=== PATIENT | male | born 1960 | race Caucasian/White ===

== ENCOUNTER 2022-07-26 08:00 | Outpatient (CLI) | payer BC, MEDICAID ==
[~2022-07-26] VITALS: Ht 180.3 cm; Wt 90.7 kg
[2022-07-26] MEDS ORDERED: GABA600T13 (14:05)
[2022-07-26] MEDS ORDERED: ESCI20TA39 (14:05)
[2022-07-26] MEDS ORDERED: ALBU90AE (14:05)
[2022-07-26] MEDS ORDERED: BACL20TA2 PO (14:05)
[2022-07-26] MEDS ORDERED: CARV25TA56 PO (14:05)
[2022-07-26] MEDS ORDERED: FURO20TA4 (14:05)
[2022-07-26] MEDS ORDERED: ATOR20TA66 PO (14:05)
[2022-07-26] MEDS ORDERED: LISI20TA28 PO (14:05)
[2022-07-26] MEDS ORDERED: ALPR1TAB2 PO (14:05)
[2022-07-26] MEDS ORDERED: BUPR300T86 PO (14:05)
[2022-07-26] MEDS ORDERED: OXYC1TAB17 PO (14:05)
[2022-07-26 14:42] LABS: BASOPHILS # (AUTO) 0.1 X10'3 (0-0.2); BASOPHILS % (AUTO) 0.7 % (0-1); EOSINOPHILS # (AUTO) 0.3 X10'3 (0-0.9); EOSINOPHILS % (AUTO) 2.6 % (0-6); LYMPHOCYTES # (AUTO) 1.5 X10'3 (1.1-4.8); LYMPHOCYTES % (AUTO) 12.5 % (21-51); MEAN CORPUSCULAR HEMOGLOBIN 30.7 PG (27.0-31.0); MEAN CORPUSCULAR VOLUME 90.4 FL (78-98); MEAN PLATELET VOLUME 8.2 FL (7.4-10.4); MONOCYTES % (AUTO) 8.4 % (2-12); NEUTROPHILS # (AUTO) 8.9 X10'3 (1.8-7.7); NEUTROPHILS % (AUTO) 75.8 % (42-75); PRE OP HEMATOCRIT 40.9 % (42.0-52.0); PRE OP HEMOGLOBIN 13.9 g/dL (14.0-17.9); PRE OP PLATELET COUNT 264 X10'3 (140-440); RED BLOOD COUNT 4.53 X10'6 (4.70-6.10); RED CELL DISTRIBUTION WIDTH 13.9 % (11.5-14.5)
[2022-07-26 15:10] LABS: ALBUMIN 3.4 G/DL (3.4-5.0); ALBUMIN/GLOBULIN RATIO 0.9 (1.1-1.5); ALKALINE PHOSPHATASE 96 IU/L (46-116); BLOOD UREA NITROGEN 22 MG/DL (7-18); BUN/CREATININE RATIO 17.9 (5.4-32.0); CALCIUM 8.9 MG/DL (8.5-10.1); CHLORIDE 106 MMOL/L (99-107); CREATININE 1.23 MG/DL (0.60-1.10); PRE OP ALT 27 U/L (30-65); PRE OP ANION GAP 8 (8-16); PRE OP AST 31 U/L (10-37); PRE OP BILIRUB, TOTAL 0.8 MG/DL (0.0-1.0); PRE OP GLUCOSE 110 MG/DL (70-104); PRE OP SODIUM 141 MMOL/L (135-145); TOTAL CARBON DIOXIDE 26.6 MMOL/L (24-32); TOTAL PROTEIN 7.3 G/DL (6.4-8.2); eGFR 60 ML/MIN
[2022-07-27] MEDS ORDERED: ringers solution, lacted 1,000 ML IV SCH (05:00)
[2022-07-27] MEDS ORDERED: ceFAZolin inj. 2,000 MG in dextrose 5%-water 100 ML IV ONE (05:30)
[2022-07-27] MEDS ORDERED: famotidine 20mg tablet PO ONE (05:30)
== END 2022-07-26 23:00 | disposition home or self-care (01) ==
LOC: LAB 08:00 → EDSTATUS 07-27 07:30
PROVIDERS: ATTEND Orthopaedic Surgery
DX: Z01.818 Encounter for other preprocedural examination (principal); M19.011 Primary osteoarthritis, right shoulder; M75.101 Unspecified rotator cuff tear or rupture of right shoulder, not specified as traumatic; M19.012 Primary osteoarthritis, left shoulder; Z88.2 Allergy status to sulfonamides
CPT/HCPCS: 36415; 80053; 85025; 93005; J7120

== ENCOUNTER 2022-10-05 08:32 | Inpatient (IN) | payer BC, MEDICAID ==
[2022-09-29 11:48] LABS: BASOPHILS # (AUTO) 0.1 X10'3 (0-0.2); BASOPHILS % (AUTO) 0.7 % (0-1); EOSINOPHILS # (AUTO) 1.3 X10'3 (0-0.9); EOSINOPHILS % (AUTO) 9.4 % (0-6); LYMPHOCYTES # (AUTO) 2.1 X10'3 (1.1-4.8); LYMPHOCYTES % (AUTO) 15.7 % (21-51); MEAN CORPUSCULAR HEMOGLOBIN 29.3 PG (27.0-31.0); MEAN CORPUSCULAR HGB CONC 32.8 g/dL (33.0-36.5); MEAN CORPUSCULAR VOLUME 89.4 FL (78-98); MEAN PLATELET VOLUME 7.5 FL (7.4-10.4); MONOCYTES % (AUTO) 7.4 % (2-12); NEUTROPHILS # (AUTO) 8.9 X10'3 (1.8-7.7); NEUTROPHILS % (AUTO) 66.8 % (42-75); PRE OP HEMOGLOBIN 14.8 g/dL (14.0-17.9); PRE OP PLATELET COUNT 278 X10'3 (140-440); RED BLOOD COUNT 5.04 X10'6 (4.70-6.10); RED CELL DISTRIBUTION WIDTH 15.2 % (11.5-14.5)
[2022-09-29 12:00] LABS: ALBUMIN 3.5 G/DL (3.4-5.0); ALBUMIN/GLOBULIN RATIO 0.9 (1.1-1.5); ALKALINE PHOSPHATASE 112 IU/L (46-116); BLOOD UREA NITROGEN 16 MG/DL (7-18); CALCIUM 8.7 MG/DL (8.5-10.1); CHLORIDE 107 MMOL/L (99-107); PRE OP ALT 19 U/L (30-65); PRE OP ANION GAP 6 (8-16); PRE OP AST 16 U/L (10-37); PRE OP BILIRUB, TOTAL 0.3 MG/DL (0.0-1.0); PRE OP GLUCOSE 115 MG/DL (70-104); PRE OP POTASSIUM 4.4 MMOL/L (3.4-5.1); PRE OP SODIUM 139 MMOL/L (135-145); TOTAL CARBON DIOXIDE 26.3 MMOL/L (24-32); TOTAL PROTEIN 7.2 G/DL (6.4-8.2); eGFR > 90 ML/MIN
[~2022-10-05] VITALS: Ht 180.3 cm; Wt 99.4 kg
[2022-10-05] VITALS (28 sets, daily range): BP systolic 103–165; BP diastolic 65–101
[~2022-10-05 08:32] MED LIST: ALBU90AE; ALPR1TAB2 PO; ATOR20TA66 PO; BACL20TA2 PO; CARV25TA56 PO; DOCUMENT DATE & TIME OF BETA-BLOCKER PO ONE; ESCI20TA39; FURO20TA4; GABA600T13; LISI20TA28 PO; OXYC1TAB17 PO; TRAZ150T78 PO; VENL150C58 PO; albuterol 2.5 MG/3 ML nebule NEB ONE; ceFAZolin inj. 2,000 MG in dextrose 5%-water 100 ML IV ONE; famotidine 20mg tablet PO ONE; ringers solution, lacted 1,000 ML IV SCH
[2022-10-05] MEDS ORDERED: labetalol 20mg/4ml (5mg/ml) syringe IV PRN (10:55)
[2022-10-05] MEDS ORDERED: morphine 4 MG/ML inj SYRINge IV PRN (10:55)
[2022-10-05] MEDS ORDERED: fentaNYL/PF 50MCG/1 ML 2ML syringe IV PRN ×2 (10:55)
[2022-10-05] MEDS ORDERED: ondansetron/PF 4mg/2ml inj IV PRN ×2 (10:55→14:40)
[2022-10-05] MEDS ORDERED: ROPIVAcaine 0.2% (10 MG/5 ML) BOLUS INJECTION INTERSCALE PRN (10:55)
[2022-10-05] MEDS ORDERED: hydrALAZINE 20mg/ml inj. IV PRN (10:55)
[2022-10-05] MEDS ORDERED: ringers solution, lacted 1,000 ML IV SCH (10:55)
[2022-10-05] MEDS ORDERED: ROPIVAcaine 0.2%/PF PUMP/bolus 545 ML INTERSCALE SCH (10:55)
[2022-10-05] MEDS ORDERED: morphine 2 MG/ML inj. syringe IV PRN (10:55)
[2022-10-05] MEDS ORDERED: fentaNYL/PF 50MCG/1 ML 2ML syringe ONE (11:21)
[2022-10-05] MEDS ORDERED: midazolam 1 mg/ML 2ml injection ONE (11:21)
[2022-10-05] MEDS ORDERED: LIDOcaine 2% (20mg/ml) 5ml vial ONE (11:25)
[2022-10-05] MEDS ORDERED: epiNEPHrine 1 mg/ml inj ONE (11:25)
[2022-10-05] MEDS ORDERED: sevoflurane 250ml liquid IH ONE (11:25)
[2022-10-05] MEDS ORDERED: ATROPINE SULFATE 0.4 MG/ML injection (OR only) ONE (11:25)
[2022-10-05] MEDS ORDERED: propofol 10mg/ml 20ml vial IV ONE (11:25)
[2022-10-05] MEDS ORDERED: ePHEDrine 50MG/ML INJ. ONE (11:25)
--- NOTE | 2022-10-05 12:40 | NUR ---
Received from OR via [facility], accompanied by Anesthesiologist DR FLORIAN and report given by Anesthesiolgist. PT ARRIVED TO PACU ON MONITOR. AFTER REPORT WAS RECEIVED PT WAS PLACED ON BEDSIDE MONITOR, CRASH CART IS AT BEDSIDE AND PACER PADS ARE ON PT. VSS, PT IN SR WITH LBB, RATE IN LOW 90'S. BP IS 120'S/90'S. PT RECEIVING 10L 02 TO MASK AND TOLERATING WELL WITH O2 SAT >95%. PT RR IS 15-16. PT HAS 20G PIV TO LEFT FA WITH LR INFUSING. PT HAS INTERSCALENE BLOCK THAT WAS PLACED, TO BE REMOVED AT A LATER TIME AND VERBAL ORDER RECEIVED TO NOT CONNECTED TO ON-Q. 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 PUPILS ARE EQUAL AND REACTIVE. PT HAS NO C/O SOB OR CHEST PAIN. BEDSIDE EKG PERFORMED, CARDIOLOGY ORDERED ECHO. PT IS RESTING WITH NO S/S OF DISCOMFORT/DISTRESS NOTED AT THIS TIME. WILL CONTINUE TO ASSESS.
[2022-10-05] MEDS ORDERED: magnesium hydroxide 30ml (MOM) UD suspension PO PRN (14:40)
[2022-10-05] MEDS ORDERED: magnesium Cl slow-release 64mg tablet PO PRN (14:40)
[2022-10-05] MEDS ORDERED: mag hydrox/Alum hydrox/simeth 30ml oral suspension PO PRN (14:40)
[2022-10-05] MEDS ORDERED: potassium Cl 40MEQ/1/2NS 520ml 520 ML IV PRN (14:40)
[2022-10-05] MEDS ORDERED: HYDROcodone/acetaminophen 5mg/325mg tablet PO PRN (14:40)
[2022-10-05] MEDS ORDERED: potassium Cl 20 mEq SR tablet PO PRN ×2 (14:40)
[2022-10-05] MEDS: normal saline 1000ml 1,000 ML IV SCH (14:40)
[2022-10-05] MEDS ORDERED: magnesium 4gm in 100ml NS 100 ML IV PRN (14:40)
[2022-10-05] MEDS ORDERED: acetaminophen 325mg tablet PO PRN (14:40)
--- NOTE | 2022-10-05 14:40 | NUR ---
Received report from Florence SCHOFIELD in recovery.
--- NOTE | 2022-10-05 15:25 | NUR ---
INTERSCALENE BLOCK CATHETER D/C'D PER TEL ORDER FROM ANESTHESIA. PT TOLERATED WELL. CATH TIP INTACT. NO BLEEDING NOTED., BAND-AID PLACED.
--- NOTE | 2022-10-05 15:43 | NUR ---
Patient arrived to unit via gurney and transfered onto hospital bed with minimal assistance.
--- NOTE | 2022-10-05 15:48 | NUR ---
REPORT GIVEN TO CLAUDIO SIMON AND ALL QUESTIONS ANSWERED. PATIENT TRANSFERRED TO PCU. LABELED BELONGINGS PRESENT AND DELIVERED TO ROOM ALONG WITH BLACK SLING PT BROUGHT IN. RN PRESENT ALL CRITERIA FOR TRANSFER BACK TO THE FLOOR HAS BEEN ACHIEVED. VSS. PAIN AT A TOLERABLE LEVEL. BED LOW, CALL LIGHT PRESENT AND 2 RAILS DOWN. RN AWARE THAT PATIENT HAS ARRIVED. TO ACCEPT CARE OF PATIENT.
--- NOTE | 2022-10-05 18:21 | NUR ---
Spoke with Dr Barreto Cardiology about patient's condition. Answered his questions.
--- NOTE | 2022-10-05 18:23 | NUR ---
Problems reprioritized. Patient report given, questions answered & plan of care reviewed with Karl SIMON.
[2022-10-05] MEDS: enoxaparin 30mg/0.3ml syringe SQ SCH (19:25)
[2022-10-05] MEDS: docusate sod 100mg capsule PO SCH (19:27)
[2022-10-05] MEDS: K and/or MAG REPLACEMENT MC SCH (20:00)
[2022-10-05] MEDS ORDERED: oxyCODONE/APAP 10/325mg tablet PO ONE (21:20)
[2022-10-05] MEDS ORDERED: ALPRAZolam 0.25mg tablet PO PRN (21:20)
[2022-10-05] MEDS ORDERED: gabapentin 400mg capsule PO SCH (21:20)
[2022-10-06] MEDS: HYDROcodone/acetaminophen 10/325mg tab PO PRN ×2 (01:46→07:52)
[2022-10-06 02:15] VITALS: BP 157/101
[2022-10-06 05:49] LABS: BASOPHILS # (AUTO) 0.1 X10'3 (0-0.2); BASOPHILS % (AUTO) 0.8 % (0-1); EOSINOPHILS # (AUTO) 0.9 X10'3 (0-0.9); EOSINOPHILS % (AUTO) 5.8 % (0-6); HEMATOCRIT 44.1 % (42.0-52.0); HEMOGLOBIN 14.6 g/dl (14.0-17.9); LYMPHOCYTES # (AUTO) 2.6 X10'3 (1.1-4.8); LYMPHOCYTES % (AUTO) 17.1 % (21-51); MEAN CORPUSCULAR HEMOGLOBIN 29.8 PG (27.0-31.0); MEAN CORPUSCULAR HGB CONC 33.1 g/dL (33.0-36.5); MEAN CORPUSCULAR VOLUME 90.1 FL (78-98); MEAN PLATELET VOLUME 7.5 FL (7.4-10.4); MONOCYTES # (AUTO) 1.1 X10'3 (0-0.9); MONOCYTES % (AUTO) 7.4 % (2-12); NEUTROPHILS # (AUTO) 10.3 X10'3 (1.8-7.7); NEUTROPHILS % (AUTO) 68.9 % (42-75); PLATELET COUNT 305 X10'3 (140-440); RED CELL DISTRIBUTION WIDTH 15.3 % (11.5-14.5)
[2022-10-06 05:56] LABS: ALBUMIN 3.2 G/DL (3.4-5.0); ANION GAP 5 (8-16); BLOOD UREA NITROGEN 15 MG/DL (7-18); BUN/CREATININE RATIO 16.5 (5.4-32.0); CALCIUM 7.7 MG/DL (8.5-10.1); CHLORIDE 108 MMOL/L (99-107); CREATININE 0.91 MG/DL (0.60-1.10); MAGNESIUM 2.1 MG/DL (1.5-2.4); SODIUM 141 MMOL/L (135-145); TOTAL CARBON DIOXIDE 28.1 MMOL/L (24-32); eGFR 84 ML/MIN
[2022-10-06 05:57] LABS: GLUCOSE 101 MG/DL (70-104); POTASSIUM 3.9 MMOL/L (3.5-5.1)
--- NOTE | 2022-10-06 06:30 | NUR ---
Patient in room PCU 3024. I have received report from Karl SIMON and had the opportunity to ask questions and assume patient care.
[2022-10-06 07:00] VITALS: BP 145/101
[2022-10-06] MEDS: docusate sod 100mg capsule PO SCH (07:52)
[2022-10-06] MEDS: enoxaparin 30mg/0.3ml syringe SQ SCH (07:53)
[2022-10-06] MEDS: K and/or MAG REPLACEMENT MC SCH (08:00)
[2022-10-06] MEDS: normal saline 1000ml 1,000 ML IV SCH (10:40)
[2022-10-06 11:00] VITALS: BP 127/93
[2022-10-06] MEDS ORDERED: ALPRAZolam 0.25mg tablet PO ONE ×2 (12:05→12:07)
[2022-10-06] MEDS ORDERED: CARV25TA56 PO (12:14)
--- NOTE | 2022-10-06 13:42 | NUR ---
Patient discharged home. IV removed and tele removed and returned to telecommunications officer. All belongings and discharge instructions sent with patient. Patient escorted out by nursing and left via private vehicle.
== END 2022-10-06 13:29 | disposition home or self-care (01) | DRG 563 ==
LOC: PAS 08:32 → PCU 3S 14:43
PROVIDERS: ADMIT Family Medicine; ATTEND Family Medicine
PROC: 3E0T33Z Introduction of Anti-inflammatory into Peripheral Nerves and Plexi, Percutaneous Approach (ICD-10-PCS; 2022-10-05)
PROC: 3E0T3BZ Introduction of Anesthetic Agent into Peripheral Nerves and Plexi, Percutaneous Approach (ICD-10-PCS; principal; 2022-10-05 11:25)
DX: M24.111 Other articular cartilage disorders, right shoulder (principal); I42.8 Other cardiomyopathies; I50.22 Chronic systolic (congestive) heart failure; M75.101 Unspecified rotator cuff tear or rupture of right shoulder, not specified as traumatic; E78.5 Hyperlipidemia, unspecified; F12.90 Cannabis use, unspecified, uncomplicated; R00.1 Bradycardia, unspecified; G89.4 Chronic pain syndrome; I95.9 Hypotension, unspecified; I11.0 Hypertensive heart disease with heart failure; I25.10 Atherosclerotic heart disease of native coronary artery without angina pectoris; I34.0 Nonrheumatic mitral (valve) insufficiency; I44.7 Left bundle-branch block, unspecified; J44.9 Chronic obstructive pulmonary disease, unspecified; Z87.891 Personal history of nicotine dependence; Z88.2 Allergy status to sulfonamides; Z91.048 Other nonmedicinal substance allergy status; Z79.899 Other long term (current) drug therapy
CPT/HCPCS: 93306; Z7506; Z7508; 36415; 80048; 80053; 82948; 83735; 85025; 87081; 93005; A4565; A4618; A6258; A7000; G0378; J0171; J0690; J1650; J2250; J2405; J2704; J3010; J3490; J7030; J7060; J7120

== ENCOUNTER 2023-01-04 05:31 | Day surgery (SDC) | payer MEDICARE, BC, MEDICAID ==
[2022-12-30 10:52] LABS: BASOPHILS # (AUTO) 0.1 X10'3 (0-0.2); BASOPHILS % (AUTO) 0.5 % (0-1); EOSINOPHILS # (AUTO) 0.8 X10'3 (0-0.9); EOSINOPHILS % (AUTO) 7.1 % (0-6); LYMPHOCYTES # (AUTO) 2.3 X10'3 (1.1-4.8); LYMPHOCYTES % (AUTO) 21.3 % (21-51); MEAN CORPUSCULAR HEMOGLOBIN 30.2 PG (27.0-31.0); MEAN CORPUSCULAR VOLUME 91.4 FL (78-98); MEAN PLATELET VOLUME 8.1 FL (7.4-10.4); MONOCYTES # (AUTO) 0.9 X10'3 (0-0.9); MONOCYTES % (AUTO) 8.9 % (2-12); NEUTROPHILS # (AUTO) 6.6 X10'3 (1.8-7.7); NEUTROPHILS % (AUTO) 62.2 % (42-75); PRE OP HEMATOCRIT 44.8 % (42.0-52.0); PRE OP HEMOGLOBIN 14.8 g/dL (14.0-17.9); PRE OP PLATELET COUNT 243 X10'3 (140-440); RED BLOOD COUNT 4.91 X10'6 (4.70-6.10); RED CELL DISTRIBUTION WIDTH 14.5 % (11.5-14.5)
[2022-12-30 11:03] LABS: ALBUMIN 3.8 G/DL (3.4-5.0); ALBUMIN/GLOBULIN RATIO 1.1 (1.1-1.5); ALKALINE PHOSPHATASE 96 IU/L (46-116); BLOOD UREA NITROGEN 14 MG/DL (7-18); BUN/CREATININE RATIO 14.7 (10.0-20.0); CALCIUM 8.6 MG/DL (8.5-10.1); CHLORIDE 105 MMOL/L (99-107); CREATININE 0.95 MG/DL (0.60-1.10); PRE OP ALT 22 U/L (30-65); PRE OP ANION GAP 2 (8-16); PRE OP AST 22 U/L (10-37); PRE OP BILIRUB, TOTAL 0.2 MG/DL (0.0-1.0); PRE OP GLUCOSE 102 MG/DL (70-104); PRE OP POTASSIUM 4.2 MMOL/L (3.4-5.1); PRE OP SODIUM 139 MMOL/L (135-145); TOTAL CARBON DIOXIDE 32.4 MMOL/L (24-32); TOTAL PROTEIN 7.2 G/DL (6.4-8.2); eGFR 80 ML/MIN
[~2023-01-04] VITALS: Ht 180.3 cm; Wt 96.9 kg
[2023-01-04] VITALS (9 sets, daily range): BP systolic 128–169; BP diastolic 81–113
[~2023-01-04 05:31] MED LIST changes: -ALBU90AE; -ALPR1TAB2 PO; +CARV-50 PO; -CARV25TA56 PO; -FURO20TA4; +LORA-269 PO; -albuterol 2.5 MG/3 ML nebule NEB ONE; -ceFAZolin inj. 2,000 MG in dextrose 5%-water 100 ML IV ONE; +cefazolin 2gm/D5W 100mL 100 ML IV ONE
[2023-01-04] MEDS ORDERED: meperidine/PF 50mg/ml syringe ONE (07:17)
[2023-01-04] MEDS ORDERED: fentaNYL/PF 50MCG/1 ML 2ML syringe ONE ×3 (07:17→10:46)
[2023-01-04] MEDS ORDERED: midazolam 1 mg/ML 2ml injection ONE (07:17)
[2023-01-04] MEDS ORDERED: LIDOcaine 2% (20mg/ml) 5ml vial ONE (07:21)
[2023-01-04] MEDS ORDERED: propofol inj 20 ML IV ONE (07:21)
[2023-01-04] MEDS ORDERED: dexamethasone sod phosphate 4mg/ml inj. ONE (07:21)
[2023-01-04] MEDS ORDERED: ondansetron/PF 4mg/2ml inj ONE (07:21)
[2023-01-04] MEDS ORDERED: ROPIVAcaine 0.5% (5mg/ml) 30ml vial ONE (07:21)
[2023-01-04] MEDS ORDERED: morphine 4 MG/ML inj SYRINge IV PRN (07:40)
[2023-01-04] MEDS ORDERED: ROPIVAcaine 0.2% (10 MG/5 ML) BOLUS INJECTION INTERSCALE PRN ×2 (07:40→11:30)
[2023-01-04] MEDS ORDERED: hydrALAZINE 20mg/ml inj. IV PRN (07:40)
[2023-01-04] MEDS ORDERED: meperidine/PF 25mg/ml syringe IV PRN ×2 (07:40)
[2023-01-04] MEDS ORDERED: ondansetron/PF 4mg/2ml inj IV PRN (07:40)
[2023-01-04] MEDS ORDERED: morphine 2 MG/ML inj. syringe IV PRN (07:40)
[2023-01-04] MEDS ORDERED: ringers solution, lacted 1,000 ML IV SCH (07:40)
[2023-01-04] MEDS ORDERED: enalaprilat dihydrate 2.5mg/2ml vial IV PRN (07:40)
[2023-01-04] MEDS ORDERED: ePHEDrine 50MG/ML INJ. ONE (08:15)
[2023-01-04] MEDS ORDERED: ATROPINE SULFATE 0.4 MG/ML injection (OR only) ONE (08:19)
[2023-01-04] MEDS ORDERED: acetaminophen 1,000mg/100ml IV 100 ML IV ONE (08:59)
[2023-01-04] MEDS ORDERED: hydrALAZINE 20mg/ml inj. IV ONE (10:04)
[2023-01-04] MEDS ORDERED: HYDROcodone/acetaminophen 10/325mg tab PO PRN (11:00)
--- NOTE | 2023-01-04 11:10 | NUR ---
PT ARRIVED TO VIA GUREMILY ACCOMPANIED BY DR. BHARDWAJ-ANESTHESIA REPORT GIVEN, PT WAKING UP, VSS, RIGHT ARM IN SLING-CDI DRSG WITH POWDER PACK IN WRAP, ON-Q CATHETER PRESENT, PULSE PRESENT ABLE TO MOVE FINGERS CSM INTACT TO RIGHT UE, DENIES PAIN.
[2023-01-04] MEDS ORDERED: ROPIVAcaine 0.2%/PF PUMP/bolus 545 ML INTERSCALE SCH (11:30)
--- NOTE | 2023-01-04 13:00 | NUR ---
PT DOING GREAT, UP AND GETTING DRESSED, VSS, DENIES PAIN, NO CHANGES TO DRSG, ON-Q ATTACHED AND STARTED AT 2ML, ABLE TO MOVE FINGERS, CSM INTACT, DENIES PAIN, D/C INSTRUCTIONS GIVEN FOR ON-Q AND HOME CARE-ALL QUESTIONS ANSWERED, TAKEN VIA W/C WITH ALL BELONGINGS TO VEHICLE FOR TRANSPORT HOME.
== END 2023-01-04 13:00 | disposition home or self-care (01) ==
LOC: PAS 05:31
PROVIDERS: ATTEND Orthopaedic Surgery
DX: M75.121 Complete rotator cuff tear or rupture of right shoulder, not specified as traumatic (principal); M75.21 Bicipital tendinitis, right shoulder; M65.811 Other synovitis and tenosynovitis, right shoulder; M75.51 Bursitis of right shoulder; M24.111 Other articular cartilage disorders, right shoulder; M19.011 Primary osteoarthritis, right shoulder; I10 Essential (primary) hypertension; F32.A Depression, unspecified; F41.0 Panic disorder [episodic paroxysmal anxiety]; M96.1 Postlaminectomy syndrome, not elsewhere classified; I44.7 Left bundle-branch block, unspecified; G89.18 Other acute postprocedural pain; Z88.2 Allergy status to sulfonamides; Z98.890 Other specified postprocedural states; Z87.891 Personal history of nicotine dependence; Z72.89 Other problems related to lifestyle; Z79.899 Other long term (current) drug therapy
CPT/HCPCS: 23430; 29824; 29826; 29827; 36415; 64416; 80053; 82948; 85025; C1713; J0131; J0360; J0690; J1100; J2175; J2250; J2405; J2704; J2795; J3010; J3490; J7120; Z7506; Z7508; Z7512; A4618; A6449; A7000